=== PATIENT | female | born 1960 | race Caucasian/White ===

== ENCOUNTER 2025-03-06 14:23 | Inpatient (IN) | payer MEDICARE, BC, OTHER ==
[~2025-03-06] VITALS: Ht 167.6 cm; Wt 83.9 kg
[2025-03-06 15:09] LABS: BASOPHILS ABSOLUTE AUTO 0.08 K/mm3 (0.00-0.23); BASOPHILS PERCENT AUTO 1 % (0-2); EOSINOPHILS ABSOLUTE AUTO 0.44 K/mm3 (0.00-0.68); EOSINOPHILS PERCENT AUTO 5 % (0-6); Hematocrit 37.5 % (33.0-51.0); Hemoglobin 12.4 g/dL (11.5-16.0); IMMATURE GRAN ABSOLUTE AUTO 0.03 K/mm3 (0.00-0.10); IMMATURE GRAN PERCENT AUTO 0 % (0-1); LYMPHOCYTES ABSOLUTE AUTO 1.67 K/mm3 (0.84-5.20); LYMPHOCYTES PERCENT AUTO 20 % (21-46); MONOCYTES ABSOLUTE AUTO 1.01 K/mm3 (0.16-1.47); MONOCYTES PERCENT AUTO 12 % (4-13); Mean Corpuscular HGB 30.2 pg (26.0-34.0); Mean Corpuscular HGB Conc 33.1 g/dL (31.5-36.5); Mean Corpuscular Volume 92 fL (80-100); Mean Platelet Volume 10.7 fL (9.1-12.4); NEUTROPHILS ABSOLUTE AUTO 5.02 K/mm3 (1.96-9.15); NEUTROPHILS PERCENT AUTO 61 % (41-73); Platelet Count 273 K/mm3 (150-400); RDW Coefficient Variation 14.6 % (11.7-14.2); RDW Standard Deviation 49.1 fL (35.1-46.3); White Blood Cell Count 8.25 K/mm3 (4.00-11.30)
[2025-03-06 15:41] LABS: Albumin, Blood 3.2 g/dL (3.4-5.0); Albumin/Globulin Ratio 0.9 (0.8-1.8); Bilirubin, Total 0.3 mg/dL (0.1-1.0); Calcium, Blood 8.7 mg/dL (8.5-10.1); Creatinine, Blood 0.69 mg/dL (0.40-1.00); Globulin, Blood 3.4 g/dL (2.2-4.0); Potassium, Blood 3.8 mmol/L (3.5-5.5); Total Protein, Blood 6.6 g/dL (6.4-8.2)
[2025-03-06] MEDS ORDERED: Furosemide 10 MG/ML 4ML Vial IV ONE (16:50)
[2025-03-06] MEDS ORDERED: Ondansetron HCl 2 MG / ML 2ML Vial IV PRN (17:25)
[2025-03-06] MEDS ORDERED: CeFAZolin Sodium 2,000 MG in NS 100 ML IV SCH (18:00)
[2025-03-06 19:43] VITALS: BP 142/95
[2025-03-06] MEDS ORDERED: Lactobacil 2-S.Thermo-Bifido 1 1 Cap PO SCH (21:00)
[2025-03-06] MEDS ORDERED: NS 250 ML IV PRN (21:25)
[2025-03-07 04:40] VITALS: BP 112/80
--- NOTE | 2025-03-07 04:40 | NUR ---
SHIFT SUMMARY PATIENT IS ALERT AND ORIENTED. PATIENT HAS HAD NO ACUTE EVENTS THIS SHIFT. VITAL SIGNS REVIEWED. PATIENT IS ADMITTED FOR CHF. PATIENT HAS BEEN DIRURESING THIS SHIFT WITH GOOD RESULT. PATIENT HAS PITTING EDEMA IN LEGS AND WOUNDS HAVE BEEN MARKED. PICTURES IN CHART ON WOUNDS. PATIENT HAS NO COMPLAINTS OF PAIN, NAUSEA, SOB OR VOMITTING THIS SHIFT. ABX INFUSED ORDERED.
[2025-03-07 05:06] LABS: Hematocrit 35.5 % (33.0-51.0); Hemoglobin 11.9 g/dL (11.5-16.0); Mean Corpuscular HGB 30.4 pg (26.0-34.0); Mean Corpuscular HGB Conc 33.5 g/dL (31.5-36.5); Mean Corpuscular Volume 91 fL (80-100); Platelet Count 265 K/mm3 (150-400); RDW Coefficient Variation 14.6 % (11.7-14.2); RDW Standard Deviation 47.8 fL (35.1-46.3); Red Blood Cell Count 3.91 M/mm3 (3.80-5.20); White Blood Cell Count 7.61 K/mm3 (4.00-11.30)
[2025-03-07 05:32] LABS: Bun/Creatinine Ratio 21.1 (12.0-20.0); Calcium, Blood 8.7 mg/dL (8.5-10.1); Creatinine, Blood 0.66 mg/dL (0.40-1.00); Free Thyroxine 1.21 ng/dL (0.70-1.60); Magnesium, Blood 2.1 mg/dL (1.6-2.4); Potassium, Blood 3.8 mmol/L (3.5-5.5); Triiodothyronine, Free 2.15 pg/mL (2.18-3.98)
[2025-03-07 07:46] VITALS: BP 110/80
[2025-03-07] MEDS ORDERED: Furosemide 10 MG/ML 4ML Vial IV SCH (09:00)
[2025-03-07] MEDS ORDERED: Enoxaparin 40 MG/0.4 ML SYR SC SCH (09:00)
[2025-03-07] MEDS ORDERED: Metoprolol Succinate 25 MG TABCR PO SCH (11:00)
[2025-03-07] MEDS ORDERED: Levothyroxine Sodium 0.025 MG Tab PO SCH (11:00)
[2025-03-07 11:16] VITALS: BP 108/71
[2025-03-07] MEDS ORDERED: Empagliflozin 10 MG TAB PO SCH (15:00)
[2025-03-07] MEDS ORDERED: Spironolactone 50 MG Tab PO SCH (15:00)
--- NOTE | 2025-03-07 15:47 | NUR ---
Discharge Summary Client discharged at 1510 hours. Client has appointment with her pcp on 03/08/2025. [facility], and has a tank currently at her house. Discharge education packet given and explained to client. Client advised to seek medical attention via urgent care or ER for SOB. New medications explained to client. IV access discontinued. client voiced no concerns or questions when asked. Client left unit via wheelchair.
[2025-03-07 16:10] VITALS: BP 109/81
--- NOTE | 2025-03-07 18:02 | NUR ---
SHIFT SUMMARY CLIENT ALERT AND ORIENTED X 4. ADMITTED FOR NEW ONSET CHF. HAD ECHO TODAY. EF = 21%. PITTING EDEMA NOTED BILAT LE. WOUNDS DRESSED WITH XEROFORM, ABD, AND KERLIX. CLEAN, DRY AND INTACT. ABX INFUSED PER EMAR. PUREWICK IN PLACE. CONTINUES TO DIURES THROUGHOUT THE SHIFT. HAS A -890ML FLUID BALANCE THUS FAR. 20GU SALINE LOCK IN PLACE AND PATENT IN LEFT FOREARM. BEDRAIL TO HEAD OF BED RAISED AND BED IN LOW POSITION FOR SAFETY.
[2025-03-07 19:30] VITALS: BP 106/65
[2025-03-07] MEDS ORDERED: Sacubitril/Valsartan 24 MG-26 MG Tab PO SCH ×2 (21:00)
[2025-03-07 23:41] VITALS: BP 116/81
[2025-03-08 04:33] VITALS: BP 119/88
[2025-03-08 05:11] LABS: BASOPHILS ABSOLUTE AUTO 0.08 K/mm3 (0.00-0.23); BASOPHILS PERCENT AUTO 1 % (0-2); EOSINOPHILS ABSOLUTE AUTO 0.33 K/mm3 (0.00-0.68); EOSINOPHILS PERCENT AUTO 4 % (0-6); Hematocrit 37.6 % (33.0-51.0); Hemoglobin 12.7 g/dL (11.5-16.0); IMMATURE GRAN ABSOLUTE AUTO 0.02 K/mm3 (0.00-0.10); IMMATURE GRAN PERCENT AUTO 0 % (0-1); LYMPHOCYTES ABSOLUTE AUTO 1.35 K/mm3 (0.84-5.20); LYMPHOCYTES PERCENT AUTO 17 % (21-46); MONOCYTES PERCENT AUTO 13 % (4-13); Mean Corpuscular HGB 30.4 pg (26.0-34.0); Mean Corpuscular HGB Conc 33.8 g/dL (31.5-36.5); Mean Corpuscular Volume 90 fL (80-100); Mean Platelet Volume 10.3 fL (9.1-12.4); NEUTROPHILS ABSOLUTE AUTO 5.25 K/mm3 (1.96-9.15); NEUTROPHILS PERCENT AUTO 65 % (41-73); Platelet Count 253 K/mm3 (150-400); RDW Coefficient Variation 14.5 % (11.7-14.2); RDW Standard Deviation 47.4 fL (35.1-46.3); Red Blood Cell Count 4.18 M/mm3 (3.80-5.20); White Blood Cell Count 8.03 K/mm3 (4.00-11.30)
[2025-03-08 05:35] LABS: Bun/Creatinine Ratio 17.4 (12.0-20.0); Calcium, Blood 8.5 mg/dL (8.5-10.1); Creatinine, Blood 0.8 mg/dL (0.40-1.00); Potassium, Blood 3.7 mmol/L (3.5-5.5)
--- NOTE | 2025-03-08 05:59 | NUR ---
SHIFT SUMMARY PT ADMITTED FOR NEW ONSET OF CONGESTIVE HEART FAILURE. PT IS ALERT AND ORIENTED TIMES 4. PT PRIOR TO ADMISSION FELL ASLEEP IN FRONT OF A SPACE HEATER BURNING BOTH LOWER LEGS. LEGS ARE WRAPPED LOOSELY AND PT IS DIURESING WELL (890ML) PRIOR TO SHIFT START. LAST BM WAS 03/07. PT ON TELE READING SINUS RHYTHM 96. PT IS RECEPTIVE TO CARE, ON ROOM AIR. BED IN LOW POSITION, CALL LIGHT WITHIN REACH, RAILS TIMES 2.
[2025-03-08 07:32] VITALS: BP 111/81
[2025-03-08] MEDS ORDERED: Metoprolol Succinate 50 MG TABCR PO SCH (09:00)
[2025-03-08 11:28] VITALS: BP 100/70
[2025-03-08] MEDS ORDERED: Metolazone 2.5 MG Tab PO SCH (16:00)
[2025-03-08 16:50] VITALS: BP 115/79
--- NOTE | 2025-03-08 18:04 | NUR ---
SHIFT SUMMARY ADMITTED FOR NEW ONSET CHF. A&OX4. BILAT LE WOUNDS REDRESSED AFTER SHOWER WITH XEROFORM, ABD, & KERLIX. DEANDRA SAVAGE'Conor.20G SALINE LOCK IN LEFT AC REMAINS PATENT. FLUID BALANCE = -1947NL. BED IN LOWEST SETTING WITH HEAD GUARDRAILS UP FOR SAFETY. CALL LIGHT IS WITHIN REACH.
[2025-03-08 19:41] VITALS: BP 109/77
[2025-03-09] VITALS (8 sets, daily range): BP systolic 87–118; BP diastolic 57–75
[2025-03-09 04:55] LABS: BASOPHILS ABSOLUTE AUTO 0.07 K/mm3 (0.00-0.23); BASOPHILS PERCENT AUTO 1 % (0-2); EOSINOPHILS ABSOLUTE AUTO 0.35 K/mm3 (0.00-0.68); EOSINOPHILS PERCENT AUTO 4 % (0-6); Hematocrit 39.5 % (33.0-51.0); Hemoglobin 13.1 g/dL (11.5-16.0); IMMATURE GRAN ABSOLUTE AUTO 0.03 K/mm3 (0.00-0.10); IMMATURE GRAN PERCENT AUTO 0 % (0-1); LYMPHOCYTES ABSOLUTE AUTO 1.34 K/mm3 (0.84-5.20); LYMPHOCYTES PERCENT AUTO 16 % (21-46); MONOCYTES ABSOLUTE AUTO 0.96 K/mm3 (0.16-1.47); MONOCYTES PERCENT AUTO 12 % (4-13); Mean Corpuscular HGB 29.7 pg (26.0-34.0); Mean Corpuscular HGB Conc 33.2 g/dL (31.5-36.5); Mean Corpuscular Volume 90 fL (80-100); Mean Platelet Volume 10.6 fL (9.1-12.4); NEUTROPHILS ABSOLUTE AUTO 5.62 K/mm3 (1.96-9.15); NEUTROPHILS PERCENT AUTO 67 % (41-73); Platelet Count 245 K/mm3 (150-400); RDW Coefficient Variation 14.3 % (11.7-14.2); RDW Standard Deviation 46.7 fL (35.1-46.3); Red Blood Cell Count 4.41 M/mm3 (3.80-5.20); White Blood Cell Count 8.37 K/mm3 (4.00-11.30)
--- NOTE | 2025-03-09 05:01 | NUR ---
SHIFT SUMMARY ADMITTED FOR NEW ONSET CHF. FULL CODE. ALSO HAS BLE CELLULITIS FROM CORTEZ ONE WEEK PRIOR. IV ANTIB RX ARE SCHEDULED. WE ARE DIURESING HER. DAILY DRESSING CHANGES. SHE IS A&O X4, INDEPENDENT, ON RA. REGULAR DIET. TELEMETRY: TACH @ 103 BPM. BLE EDEMA 2+. HX OF METH USE.
[2025-03-09 05:24] LABS: Bun/Creatinine Ratio 21.3 (12.0-20.0); Calcium, Blood 8.8 mg/dL (8.5-10.1); Creatinine, Blood 0.84 mg/dL (0.40-1.00); Potassium, Blood 3.5 mmol/L (3.5-5.5)
[2025-03-09] MEDS ORDERED: Spironolactone 12.5 MG TAB PO SCH (09:00)
--- NOTE | 2025-03-09 17:57 | NUR ---
SHIFT SUMMARY REMAINS A&O X 4. WOUND ON LEGS REDRESSED WITH XEROFORM, ABD AND KERLIX. CLIENT AMBULATED AROUND UNIT. GAIT WAS STRONG AND STEADY. CLIENT ENCOURAGED TO ABULATE MORE OFTEN TO HELP WITH EDEMA. IV ABX CONTINUES. 20G SALINE LOCK TO LEFT DOREARM REMAINS PATENT. CLIENT DID HAVE EPISODE OF HYPOTENSION (96/70 MANUAL), BUT WAS ASYMPTOMATIC. MET WITH MD TODAY TO DISCUSS POSSIBLE DC TOMORROW. BED IS IN LOWEST POSITION WITH HEAD RAILS UP FOR SAFETY. CALL LIGHT WITHIN REACH
[2025-03-10 01:51] VITALS: BP 88/61
[2025-03-10] MEDS ORDERED: Midodrine 5 MG Tab PO ONE (02:00)
--- NOTE | 2025-03-10 02:02 | NUR ---
CALLED HOSPITALIST I'VE NOTICED A TREND OF SOFT BP'S THIS EVENING. I DID RE-CHECK THE BP AND HR MYSELF IN EACH ARM TO CONFIRM. I DID NOTIFY THE HOSPITALIST OF THIS TREND. NEW ORDERS IN EMAR.
--- NOTE | 2025-03-10 03:55 | NUR ---
SHIFT SUMMARY ACUTE HFrEF OF 21%. 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 DIURESING WELL THOUGH HAS HAD SOFT BP TODAY, MOST RECENT 87/60. ENTRESTO HELD. INITIATED MIDODRINE 5 MG AT 0200. ALSO HAS HEALING CORTEZ TO BLE FROM SPACE HEATER EXPOSURE. RECEIVED IV ANCEF TO COVER FOR SECONDARY CELLULITIS. 20G IV IN LFA. TELEMETRY: 96 BPM, NSR. AMBULATES WITH FWW, GAIT BELT, AND 1-PERSON ASSIST. DUE TO HIGH TSH OF 13.4 ON 03/06/25, PT NOW ON SYNTHROID QAM. PLAN TO DISCUSS INCENTIVE SPIROMETER, FLUTTER VALVE, AND TRANSFER FROM IV TO PO ANTIBIOTICS AND DISCHARGE HOME IN AM IF STABILIZED.
[2025-03-10 04:24] VITALS: BP 88/63
[2025-03-10 04:44] LABS: Hematocrit 38.5 % (33.0-51.0); Hemoglobin 13.2 g/dL (11.5-16.0); Mean Corpuscular HGB 30.3 pg (26.0-34.0); Mean Corpuscular HGB Conc 34.3 g/dL (31.5-36.5); Mean Corpuscular Volume 89 fL (80-100); Mean Platelet Volume 10.3 fL (9.1-12.4); Platelet Count 285 K/mm3 (150-400); RDW Coefficient Variation 14.3 % (11.7-14.2); RDW Standard Deviation 45.5 fL (35.1-46.3); Red Blood Cell Count 4.35 M/mm3 (3.80-5.20); White Blood Cell Count 8.23 K/mm3 (4.00-11.30)
[2025-03-10 05:02] LABS: Albumin, Blood 2.8 g/dL (3.4-5.0); Anion Gap 9 mmol/L (3-11); Blood Urea Nitrogen 19 mg/dL (8-24); Bun/Creatinine Ratio 22.9 (12.0-20.0); CO2, Blood 31 mmol/L (21-32); Calcium, Blood 8.8 mg/dL (8.5-10.1); Chloride, Blood 96 mmol/L (98-108); Creatinine, Blood 0.83 mg/dL (0.40-1.00); Glomerular Filtration Rate 78 (60-); Glucose, Blood 76 mg/dL (70-99); Magnesium, Blood 2.2 mg/dL (1.6-2.4); Phosphorus, Blood 3.6 mg/dL (2.5-4.9); Sodium, Blood 132 mmol/L (136-145)
[2025-03-10 07:20] VITALS: BP 99/68
[2025-03-10] MEDS ORDERED: Midodrine 5 MG Tab PO SCH (09:00)
[2025-03-10] MEDS ORDERED: JARDIANCE10 MG PO (11:28)
[2025-03-10] MEDS ORDERED: LEVSOD25 PO (11:29)
[2025-03-10] MEDS ORDERED: ENTRESTO 24 MG1 EACH PO (11:29)
[2025-03-10] MEDS ORDERED: METO50ER PO (11:29)
[2025-03-10] MEDS ORDERED: SPIR25 PO (11:29)
[2025-03-10] MEDS ORDERED: FURO20 PO (11:30)
[2025-03-10] MEDS ORDERED: CEPH500 PO (11:30)
[2025-03-10 11:47] VITALS: BP 103/72
--- NOTE | 2025-03-10 12:10 | NUR ---
PT DISCHARGED TO HOME. ALL VALUABLES RETURNED AND SENT HOME WITH THE PT. DISCHARGE INSTRUCTIONS PROVIDED AND EDUCATED ON AT TIME OF DISCHARGE.
== END 2025-03-10 12:14 | disposition home or self-care (01) | DRG 292 ==
LOC: ER 14:23 → MEDS 14:24
PROVIDERS: Emergency Medicine; Internal Medicine; Nurse Practitioner Acute Care; ADMIT Internal Medicine
DX: I50.31 Acute diastolic (congestive) heart failure (principal); L03.115 Cellulitis of right lower limb; L03.116 Cellulitis of left lower limb; I27.20 Pulmonary hypertension, unspecified; I34.0 Nonrheumatic mitral (valve) insufficiency; E03.9 Hypothyroidism, unspecified; F15.90 Other stimulant use, unspecified, uncomplicated; F17.200 Nicotine dependence, unspecified, uncomplicated; Z71.6 Tobacco abuse counseling; Z88.5 Allergy status to narcotic agent; Z71.51 Drug abuse counseling and surveillance of drug abuser
CPT/HCPCS: 36415; 71046; 80048; 80053; 80069; 83735; 83880; 84439; 84443; 84481; 84484; 85025; 85027; 93005; 93010; 96372; 96374; 96375; 96376; 99285-25; A9270; C8929; G0378; J0690; J1650; J1940; J7050; Q9957